=== PATIENT | female | born 1970 | race Caucasian/White ===

== ENCOUNTER 2018-06-30 18:48 | Emergency (ER) | payer BC, OTHER ==
[2018-06-30] MEDS ORDERED: ONDANSETRON HCL INJ/PF 4 MG/2 ML SDV IV ONE (19:24)
[2018-06-30] MEDS ORDERED: RINGERS SOLUTION,LACTATED 1,000 ML IV ONE (19:24)
--- NOTE | 2018-06-30 19:28 | ER Document Report ---
ED General - General Chief Complaint: Dizziness Stated Complaint: DIZZINESS Time Seen by Provider: 06/30/18 19:01 Primary Care Provider: DAYANNA RAMIREZ DO [Primary Care Provider] - Follow up in 3-5 days Notes: Patient is a 47-year old female with a past medical history of anxiety who presents complaining of an episode of lightheadedness and feel that she was about to pass out while at work today. Patient states that she was sitting at her desk, began to feel somewhat nauseated, sweaty and felt like her heart was going quickly. States that she drank a little bit of nick antonio which seemed to help mildly but do not fully resolve them. 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 She states that she is feeling somewhat better since getting in bed. She denies any associated chest pain, shortness of breath, vomiting, although reports that she is somewhat nauseated. Denies history of similar symptoms in the past. Denies any cardiac history. Has not seen her primary doctor regarding today's concerns. Denies focal weakness, numbness, vertigo or confusion. TRAVEL OUTSIDE OF THE [place] IN LAST 30 DAYS: No - Related Data Allergies/Adverse Reactions: Penicillins Allergy (Verified 03/16/15 13:23) Past Medical History - General Information source: Patient - Social History Smoking Status: Never Smoker Frequency of alcohol use: None Drug Abuse: None Family History: Reviewed & Not Pertinent Past Surgical History: Reports: Hx Hysterectomy Review of Systems - Review of Systems Notes: Constitutional: Negative for fever. HENT: Negative for sore throat. Eyes: Negative for visual changes. Cardiovascular: Negative for chest pain. Positive for lightheadedness Respiratory: Negative for shortness of breath. Gastrointestinal: Negative for abdominal pain, vomiting or diarrhea. Genitourinary: Negative for dysuria. Musculoskeletal: Negative for back pain. Skin: Negative for rash. Neurological: Negative for headaches, weakness or numbness. 10 point ROS negative except as marked above and in HPI. Physical Exam - Vital signs Vitals: Resp BP Pulse Ox 12 143/99 H 100 06/30/18 19:06 06/30/18 19:06 06/30/18 19:06 Interpretation: Hypertensive Notes: PHYSICAL EXAMINATION: GENERAL: Well-appearing, well-nourished and in no acute distress. HEAD: Atraumatic, normocephalic. EYES: Pupils equal round and reactive to light, extraocular movements intact, sclera anicteric, conjunctiva are normal. ENT: nares patent, oropharynx clear without exudates. Moist mucous membranes. NECK: Normal range of motion, supple without lymphadenopathy LUNGS: Breath sounds clear to auscultation bilaterally and equal. No wheezes rales or rhonchi. HEART: Regular rate and rhythm without murmurs ABDOMEN: Soft, nontender, normoactive bowel sounds. No guarding, no rebound. No masses appreciated. EXTREMITIES: Normal range of motion, no pitting or edema. No cyanosis. NEUROLOGICAL: No focal neurological deficits. Moves all extremities spontaneously and on command. PSYCH: Normal mood, normal affect. SKIN: Warm, Dry, normal turgor, no rashes or lesions noted. Course - Re-evaluation Re-evalutation: 06/30/18 19:26 Presentation of near syncope of unclear etiology. Patient normotensive, alert, without focal neurologic deficits at time of arrival. Denies pre-syncope was during exertion. No preceding symptoms of palpitations, chest pain, or shortness of breath. Patient asymptomatic at time of evaluation with the exception of some mild nausea EKG is without evidence of HCOM, right heart strain, ST changes to suggest ischemia, prolong QTc, delta wave, epsilon wave, or Brugada syndrome. Patient denies any family history of sudden cardiac , personal history of of structural heart disease. Patient denies any symptoms to suggest an acute PE, SD, TAD, SAH, seizure, or acute GI bleed as the etiology of their syncope today. On exam, no murmurs to suggest critical aortic stenosis as possible etiology. Labs unremarkable. Patient felt improved after receiving IV ondansetron and IV fluids based on overall clinical history, exam findings, vitals, and patients appearance, I feel it is safe for patient to be discharged home at this time with close outpatient follow-up and strict return precautions. Patient is in agreement with this plan, has verbalized indications for return to ED, and qu estions have been answered. - Vital Signs Vital signs: Temp Pulse Resp BP Pulse Ox 98.3 F 12 158/94 H 100 06/30/18 21:10 06/30/18 21:02 06/30/18 21:02 06/30/18 21:02 - Laboratory Result Diagrams: 06/30/18 19:10 06/30/18 19:10 Laboratory results interpreted by me: 06/30/18 06/30/18 19:10 19:10 Glucose 116 H Urine Ascorbic Acid 20 H - EKG Interpretation by Me Additional EKG results interpreted by me: 06/30/18 19:26 Sinus rhythm, rate 87. No ST elevations or depressions. QTC is 453. Discharge - Discharge Clinical Impression: Near syncope, Lightheadedness, Nausea Condition: Good Disposition: HOME, SELF-CARE Additional Instructions: You were seen today after an episode of almost passing out. Your EKG here is normal. At this time, we do not feel that your episode of lightheadedness was from any life-threatening cause. Please drink plenty of fluids over the next several days. Return to emergency department if you have any further episodes of getting lightheaded, headache, weakness, numbness, chest pain, or shortness of breath. Please follow up closely with your primary care physician. Referrals: DAYANNA RAMIREZ, [Primary Care Provider] - Follow up in 3-5 days
[2018-06-30 19:29] LABS: ABSOLUTE LYMPHOCYTES (AUTO) 1.6 10^3/uL (0.5-4.7); ABSOLUTE MONOCYTES (AUTO) 0.3 10^3/uL (0.1-1.4); ABSOLUTE NEUT (AUTO) 2.8 10^3/uL (1.7-8.2); BASOPHILS % (AUTO) 0.6 % (0-2); EOSINOPHILS % (AUTO) 0.3 % (0-6); HEMATOCRIT 37.3 % (36.0-47.0); HEMOGLOBIN 12.9 g/dL (12.0-15.5); LYMPHOCYTES % (AUTO) 33.5 % (13-45); MEAN CORPUSCULAR HEMOGLOBIN 31.3 pg (27.0-33.4); MEAN CORPUSCULAR HGB CONC 34.5 g/dL (32.0-36.0); MEAN CORPUSCULAR VOLUME 91 fl (80-97); PLATELET COUNT 257 10^3/uL (150-450); RED BLOOD COUNT 4.13 10^6/uL (3.72-5.28); RED CELL DISTRIBUTION WIDTH 12.7 % (11.5-14.0); SEGMENTED NEUTROPHILS % (AUTO) 59.6 % (42-78); TOTAL CELLS COUNTED % (AUTO) 100 %; WHITE BLOOD COUNT 4.7 10^3/uL (4.0-10.5)
[2018-06-30 19:44] LABS: APPEARANCE,URINE CLEAR; BILIRUBIN,URINE NEGATIVE (NEGATIVE); COLOR,URINE YELLOW; GLUCOSE, URINE NEGATIVE (NEGATIVE); KETONES,URINE NEGATIVE (NEGATIVE); LEUKOCYTE ESTERASE,URINE NEGATIVE (NEGATIVE); NITRITE,URINE NEGATIVE (NEGATIVE); PROTEIN,URINE NEGATIVE (NEGATIVE); URINE SPECIFIC GRAVITY 1.013; UROBILINOGEN,URINE NEGATIVE mg/dL (<2.0)
[2018-06-30 19:54] LABS: ALANINE AMINOTRANSFERASE 22 U/L (9-52); ALBUMIN 4.4 g/dL (3.5-5.0); ALKALINE PHOSPHATASE 51 U/L (38-126); ANION GAP 11 (5-19); ASPARTATE AMINO TRANSFERASE 20 U/L (14-36); BILIRUBIN,DIRECT 0.2 mg/dL (0.0-0.4); BILIRUBIN,TOTAL 0.7 mg/dL (0.2-1.3); BLOOD UREA NITROGEN 13 mg/dL (7-20); CALCIUM 10.1 mg/dL (8.4-10.2); CARBON DIOXIDE 25 mmol/L (22-30); CHLORIDE 102 mmol/L (98-107); GLUCOSE 116 mg/dL (75-110); POTASSIUM 3.8 mmol/L (3.6-5.0); TOTAL PROTEIN 7.1 g/dL (6.3-8.2)
[2018-06-30 20:03] LABS: CREATINE KINASE MB 0.38 ng/mL (<4.55)
[2018-06-30 20:06] LABS: TROPONIN I < 0.012 ng/mL
--- NOTE | 2018-06-30 20:07 | EKG REPORT ---
SEVERITY:- ABNORMAL ECG - SINUS RHYTHM RIGHT ATRIAL ABNORMALITY CONSIDER RIGHT VENTRICULAR HYPERTROPHY : Confirmed by: Fela Dowling MD 30-Jun-2018 20:07:06
[2018-06-30 21:24] VITALS: BP 158/94
== END 2018-06-30 21:25 | disposition home or self-care (01) ==
LOC: ER 18:48
DX: R55 Syncope and collapse (principal); R11.0 Nausea; Z88.0 Allergy status to penicillin
CPT/HCPCS: 93005; 99284; 36415; 82553; 85025; 80053; 81001; 84484; 93010; J2405; J7120

== ENCOUNTER 2018-12-12 07:34 | Emergency (ER) | payer OTHER, BC ==
[2018-12-12 07:58] LABS: ABSOLUTE BASOPHILS # (AUTO) 0.1 10^3/uL (0.0-0.2); ABSOLUTE LYMPHOCYTES (AUTO) 3.6 10^3/uL (0.5-4.7); ABSOLUTE MONOCYTES (AUTO) 0.7 10^3/uL (0.1-1.4); ABSOLUTE NEUT (AUTO) 3.5 10^3/uL (1.7-8.2); BASOPHILS % (AUTO) 0.9 % (0-2); EOSINOPHILS % (AUTO) 0.6 % (0-6); HEMOGLOBIN 13.7 g/dL (12.0-15.5); LYMPHOCYTES % (AUTO) 45.6 % (13-45); MEAN CORPUSCULAR HEMOGLOBIN 31.5 pg (27.0-33.4); MEAN CORPUSCULAR HGB CONC 33.3 g/dL (32.0-36.0); MEAN CORPUSCULAR VOLUME 95 fl (80-97); MONOCYTES % (AUTO) 8.7 % (3-13); PLATELET COUNT 409 10^3/uL (150-450); RED BLOOD COUNT 4.34 10^6/uL (3.72-5.28); RED CELL DISTRIBUTION WIDTH 13.8 % (11.5-14.0); SEGMENTED NEUTROPHILS % (AUTO) 44.2 % (42-78); TOTAL CELLS COUNTED % (AUTO) 100 %
[2018-12-12 08:15] LABS: ALKALINE PHOSPHATASE 48 U/L (38-126); ASPARTATE AMINO TRANSFERASE 26 U/L (14-36); BILIRUBIN,DIRECT 0.3 mg/dL (0.0-0.4); BILIRUBIN,TOTAL 0.9 mg/dL (0.2-1.3); BLOOD UREA NITROGEN 15 mg/dL (7-20); CALCIUM 10.3 mg/dL (8.4-10.2); GLUCOSE 112 mg/dL (75-110); POTASSIUM 4.3 mmol/L (3.6-5.0); TOTAL PROTEIN 7.7 g/dL (6.3-8.2)
[2018-12-12 08:20] LABS: CARBON DIOXIDE 13 mmol/L (22-30); CHLORIDE 107 mmol/L (98-107)
[2018-12-12] MEDS ORDERED: LEVETIRACETAM 1000 MG/NACL-ISO 1,000 MG/100 ML RTUPB IV ONE (08:20)
[2018-12-12 08:26] LABS: ALCOHOL < 10 mg/dL (NONE DETECTED); ANION GAP 25 (5-19)
[2018-12-12] MEDS ORDERED: NORMAL SALINE 1000 ML 1,000 ML IV ONE (08:38)
--- NOTE | 2018-12-12 08:56 | RADIOLOGY REPORT (SQ) ---
EXAM DESCRIPTION: CT HEAD WITHOUT COMPLETED DATE/TIME: 12/12/2018 8:11 am REASON FOR STUDY: sz COMPARISON: None. TECHNIQUE: Axial images acquired through the brain without intravenous contrast. Images reviewed wi th bone, brain and subdural windows. Additional sagittal and coronal reconstructions were generated. Images stored on PACS. All CT scanners at this facility use dose modulation, iterative reconstruction, and/or weight based d osing when appropriate to reduce radiation dose to as low as reasonably achievable (ALARA). [facility]: Dose Right [facility]: CareDose [facility]: Dose Right [facility]: Teradose 4D [facility]: [employer] RADIATION DOSE: CT Rad equipment meets quality standard of care and radiation dose reduction techniq ues were employed. CTDIvol: 53.2 mGy. DLP: 1070 mGy-cm. mGy. LIMITATIONS: Streak artifact from hair clips FINDINGS: VENTRICLES: Normal size and contour. CEREBRUM: No masses. No hemorrhage. No midline shift. No evidence for acute infarction. Normal gra y/white matter differentiation. No areas of low density in the white matter. CEREBELLUM: No masses. No hemorrhage. No alteration of density. No evidence for acute infarction. EXTRAAXIAL SPACES: No fluid collections. No masses. ORBITS AND GLOBE: No intra- or extraconal masses. Normal contour of globe without masses. CALVARIUM: No fracture. PARANASAL SINUSES: No fluid or mucosal thickening. SOFT TISSUES: No mass or hematoma. OTHER: No other significant finding. IMPRESSION: NORMAL BRAIN CT WITHOUT CONTRAST. EVIDENCE OF ACUTE STROKE: NO. COMMENT: Quality ID # [id number]: Final reports with documentation of one or more dose reduction techniques (e.g., Automated exposure control, adjustment of the mA and/or kV according to patient size, use of iterative reconstruction technique) TECHNICAL DOCUMENTATION: JOB ID: [id number] [employer]- All Rights Reserved Reading location - IP/workstation name: [facility]
--- NOTE | 2018-12-12 09:00 | RADIOLOGY REPORT (SQ) ---
EXAM DESCRIPTION: CT CERVICAL SPINE WITHOUT COMPLETED DATE/TIME: 12/12/2018 8:11 am REASON FOR STUDY: sz Neck pain COMPARISON: None. TECHNIQUE: Axial images acquired through the cervical spine without intravenous contrast. Images re viewed with lung, soft tissue and bone windows. Reconstructed coronal and sagittal MPR images review ed. Images stored on PACS. All CT scanners at this facility use dose modulation, iterative reconstruction, and/or weight based d osing when appropriate to reduce radiation dose to as low as reasonably achievable (ALARA). [facility]: Dose Right [facility]: CareDose [facility]: Dose Right [facility]: Teradose 4D [facility]: [employer] RADIATION DOSE: CT Rad equipment meets quality standard of care and radiation dose reduction techniq ues were employed. CTDIvol: 14.3 mGy. DLP: 291 mGy-cm. mGy. LIMITATIONS: None. FINDINGS: ALIGNMENT: Anatomic. MINERALIZATION: Normal. VERTEBRAL BODIES: No fractures or dislocation. DISCS: Post fusion with hardware at C5-6 and C6-7. Mild disc space loss of height at C4-5 with anter ior osteophyte formation. FACETS, LATERAL MASSES, POSTERIOR ELEMENTS: No fractures. No dislocation. No acute findings. HARDWARE: None in the spine. VISUALIZED RIBS: No fractures. LUNG APICES AND SOFT TISSUES: No significant or acute findings. OTHER: No other significant finding. IMPRESSION: NO ACUTE FINDINGS IN THE CERVICAL SPINE. TECHNICAL DOCUMENTATION: JOB ID: [id number] Quality ID # [id number]: Final reports with documentation of one or more dose reduction techniques (e.g., Au tomated exposure control, adjustment of the mA and/or kV according to patient size, use of iterative reconstruction technique) 2010 [email or web address]- All Rights Reserved Reading location - IP/workstation name: [email or web address]
--- NOTE | 2018-12-12 09:25 | ER Document Report ---
Entered by TAMMY ALVARENGA SCRIBE 12/12/18 0755 Acting as scribe for:MIKEY ERICKSON MD ED Seizure - General Chief Complaint: Seizure Stated Complaint: SEIZURE Primary Care Provider: DAYANNA BIRCH DO [Primary Care Provider] - Follow up as needed Mode of Arrival: Stretcher Information source: Patient Notes: Patient is a 48-year-old female who presents to the emergency department today with complaints of seizure-like activity. Patient works as an ER patient care secretary here at [employer] and ER staff states that the patient was sitting in her chair and fell onto the floor, flat on her face, and began having what appeared to be a tonic- clonic seizure for approximately 60 seconds. Patient states she does not remember anything that happened. Patient states prior to this occurring she noticed that her "eyes were fluttering", stating that she was unable to focus on anything. Patient states she did eat breakfast this morning. Patient states that she does not have a history of seizure disorder. Patient did not have any urinary incontinence, but she states she did urinate prior to this episode. Patient had an episode in June 2018 where she felt like she was going to pass out but she states that the symptoms were not the same as today. Patient states at that time she was having a heart racing sensation and she felt short of breath. Patient never passed out during that visit. - Related Data Allergies/Adverse Reactions: Penicillins Allergy (Verified 12/12/18 08:16) Past Medical History - General Information source: Patient, [facility] Records - Social History Smoking Status: Former Smoker Cigarette use (# per day): No Chew tobacco use (# tins/day): No Smoking Education Provided: No Frequency of alcohol use: None Drug Abuse: None Lives with: Spouse/Significant other Family History: Reviewed & Not Pertinent Patient has suicidal ideation: No Patient has homicidal ideation: No Psychiatric Medical History: Reports: Hx Anxiety Past Surgical History: Reports: Hx Hysterectomy - Partial, Hx Orthopedic Surgery - Spinal fusion C5-6 6-7 Review of Systems - Review of Systems Notes: obtained from patient and ER staff Constitutional: No symptoms reported EENT: See HPI, Other - eyes "fluttering" Cardiovascular: No symptoms reported Respiratory: No symptoms reported Gastrointestinal: No symptoms reported Genitourinary: No symptoms reported Female Genitourinary: No symptoms reported Musculoskeletal: No symptoms reported Skin: No symptoms reported Hematologic/Lymphatic: No symptoms reported Neurological/Psychological: See HPI, Seizure -: Yes All other systems reviewed and negative Physical Exam - Vital signs Vitals: BP Pulse Ox 153/93 H 100 12/12/18 07:39 12/12/18 07:39 - Notes Notes: Physical Exam: General: Alert, appears well. Did not urinate on herself but does state she went to the bathroom shortly before this episode. HEENT: Normocephalic. Atraumatic. PERRL. Extraocular movements intact. Oropharynx clear. Tongue not chewed or injured. There are abrasions over the anterior neck. Teeth #8 and #9 are chipped. Neck: Supple. C-collar removed. Non-tender. Respiratory: No respiratory distress. Clear and equal breath sounds bilaterally. Cardiovascular: Regular rate and rhythm. Abdominal: Normal Inspection. Non-tender. No distension. Normal Bowel Sounds. Back: No gross abnormalities. Extremities: Moves all four extremities. Upper extremities: Normal inspection. Normal ROM. Lower extremities: Normal inspection. No edema. Normal ROM. Neurological: Normal cognition. AAOx4. Normal speech. Psychological: Normal affect. Normal Mood. Skin: Warm. Dry. Normal color. Course - Re-evaluation Re-evalutation: 12/12/18 12:04 Reviewing patient records, I find that she has been prescribed alprazolam 0.5 mg 3 times daily since the middle of August of this year. She had been prescribed dosing like that previously and had drug-free intervals of several months at a time. At this time Dr. Dick Garcia is prescribing her zolpidem and her alprazolam. The patient's urine drug screen was negative for benzodiazepines. When asking about this the patient initially tells me that she takes the alprazolam only twice daily, and also stated that she was out and needed to get a refill and that is why she had not had any in the last few days. When I pointed out that that should have left her with an additional 30 tablets, then she stated she just stopped taking them 2 days ago because she felt better. She also reports that she is seeing a primary care provider at [facility] named Dr. Birch who had recommended she see a neurologist for her sleeping problems for which she takes the zolpidem. At this time the exact cause of her seizure is quite confusing. There have been no cardiac arrhythmias, and her postictal state with suggest this was not cardiac syncope. She is possibly taking benzodiazepines on a daily basis and now has stopped abruptly and this may have triggered the seizure. She will be advised to continue taking the alprazolam as it was prescribed, and follow-up with either Dr. Shaffer or Dr. Birch tomorrow for further evaluation and referral to a neurologist for EEG testing. I also reviewed the lab work with the patient and pointed out that her serum creatinine was 0.93 on 06/30/2018, and it is 1.28 today. There is a significant change in her urine creatinine with out a change in her BUN or urine specific gravity those 2 days. - Vital Signs Vital signs: Temp Pulse Resp BP Pulse Ox 19 132/89 H 100 12/12/18 10:09 12/12/18 10:09 12/12/18 10:09 - Laboratory Result Diagrams: 12/12/18 07:50 12/12/18 07:50 Laboratory results interpreted by me: 12/12/18 12/12/18 07:50 07:50 Lymph % (Auto) 45.6 H Sodium 145.4 H Carbon Dioxide 13 L Anion Gap 25 H Creatinine 1.28 H Est GFR ( Amer) 54 L Est GFR (MDRD) Non-Af 45 L Glucose 112 H Calcium 10.3 H - EKG Interpretation by Me EKG shows normal: Sinus rhythm, [place], Intervals, QRS Complexes, ST-T Waves Rate: Normal - 82 Rhythm: NSR P Waves: LAE When compared to previous EKG there are: No significant change Discharge - Discharge Clinical Impression: Syncope and collapse, Generalized seizure, Renal insufficiency Broken tooth injury Qualifiers: Encounter type: initial encounter Fracture type: closed Qualified Code(s): S02.5XXA - Fracture of tooth (traumatic), initial encounter for closed fracture Condition: Stable Disposition: HOME, SELF-CARE Additional Instructions: Seizure You have had a seizure. Seizure disorders (epilepsy) of one sort or another affect about one out of 50 people. The seizure occurs because of abnormal electrical activity in the brain. Seizures may be due to drugs and alcohol, strokes, brain injury, or infection. In the most common form of epilepsy, no cause can be found. You will require further evaluation to determine the cause of your seizure, and to determine whether anti-seizure medication is required. This follow-up testing is important, so please call us if you encounter problems with scheduling of tests or appointments. YOU SHOULD NOT DRIVE until released to do so by your physician. The law requires that seizures be reported to the transport truck driver's license bureau--a seizure while driving could be catastrophic. Call the doctor if seizures recur, or if you develop new symptoms such as fever, severe headache, stiff neck, confusion or increasing sleepiness, weakness or numbness, or visual problems. Continue your regular medications as they are prescribed. Drink plenty of fluids today and this evening. Follow-up with Dr. Birch or Dr. Garcia tomorrow to review your seizure, and lab work from today. Follow-up with your dentist to have your teeth repaired. RETURN TO THE EMERGENCY ROOM IF ANY NEW OR WORSENING SYMPTOMS. Forms: Return to Work Referrals: DAYANNA BIRCH DO [Primary Care Provider] - Follow up tomorrow DICK GARCIA MD [ACTIVE STAFF] - Follow up tomorrow Scribe Attestation: 12/12/18 10:48 I personally performed the services described in the documentation, reviewed and edited the documentation which was dictated to the scribe in my presence, and it accurately records my words and actions. I personally performed the services described in the documentation, reviewed and edited the documentation which was dictated to the scribe in my presence, and it accurately records my words and actions.
[2018-12-12 10:21] LABS: APPEARANCE,URINE SLIGHTLY-CLOUDY; BILIRUBIN,URINE NEGATIVE (NEGATIVE); GLUCOSE, URINE NEGATIVE (NEGATIVE); KETONES,URINE NEGATIVE (NEGATIVE); LEUKOCYTE ESTERASE,URINE NEGATIVE (NEGATIVE); NITRITE,URINE NEGATIVE (NEGATIVE); PROTEIN,URINE NEGATIVE (NEGATIVE); URINE SPECIFIC GRAVITY 1.011; UROBILINOGEN,URINE NEGATIVE mg/dL (<2.0)
--- NOTE | 2018-12-12 10:25 | EKG REPORT ---
SEVERITY:- ABNORMAL ECG - SINUS RHYTHM LEFT ATRIAL ABNORMALITY : Confirmed by: Yaneth Del Castillo 12-Dec-2018 10:24:49
[2018-12-12 10:32] LABS: COLOR,URINE YELLOW
[2018-12-12 10:36] LABS: URINE AMPHETAMINES SCREEN NEGATIVE; URINE BARBITURATES SCREEN NEGATIVE; URINE BENZODIAZEPINES SCREEN NEGATIVE; URINE COCAINE SCREEN NEGATIVE; URINE MARIJUANA (THC) SCREEN NEGATIVE; URINE METHADONE SCREEN NEGATIVE; URINE PHENCYCLIDINE SCREEN NEGATIVE
[2018-12-12 12:19] VITALS: BP 131/73
== END 2018-12-12 12:23 | disposition home or self-care (01) ==
LOC: ER 07:34
DX: R55 Syncope and collapse (principal); N28.9 Disorder of kidney and ureter, unspecified; S02.5XXA Fracture of tooth (traumatic), initial encounter for closed fracture; S10.91XA Abrasion of unspecified part of neck, initial encounter; W07.XXXA Fall from chair, initial encounter; R56.9 Unspecified convulsions; Z90.710 Acquired absence of both cervix and uterus; Z98.1 Arthrodesis status
CPT/HCPCS: 93005; 99284; 96360; 36415; 80307 ×2; 83735; 85025; 80053; 81001; 70450; 72125; 93010; J7030

== ENCOUNTER 2019-07-10 09:35 | Emergency (ER) | payer BC, OTHER ==
--- NOTE | 2019-07-10 10:09 | ER Document Report ---
ED General - General Chief Complaint: High Blood Pressure Stated Complaint: HIGH BLOOD PRESSURE Time Seen by Provider: 07/10/19 09:46 Primary Care Provider: DAYANNA RAMIREZ DO [Primary Care Provider] - Follow up tomorrow Mode of Arrival: Ambulatory Information source: Patient Notes: Patient presents with right flank pain for the past 4 to 5 days that has been intermittent. Patient states that when she was having the pain it causes her to become nauseous and her blood pressure to be elevated. Patient's blood pressure initially was 163/105. She denies any history of hypertension. Patient does report urinary frequency. No fever. Patient denies any vomiting. TRAVEL OUTSIDE OF THE [place] IN LAST 30 DAYS: No - HPI Onset: Other - 5 days Onset/Duration: Waxing and waning Quality of pain: Sharp Severity: Moderate Pain Level: Denies Associated symptoms: Nausea. denies: Chest pain, Chills, Nonproductive cough, Productive cough, Fever, Vomiting Exacerbated by: Denies Relieved by: Denies Similar symptoms previously: No Recently seen / treated by doctor: No - Related Data Allergies/Adverse Reactions: Penicillins Allergy (Verified 12/12/18 08:16) Past Medical History - General Information source: Patient - Social History Smoking Status: Never Smoker Frequency of alcohol use: None Drug Abuse: None Occupation: [employer] Family History: Reviewed & Not Pertinent Renal/ Medical History: Denies: Hx Peritoneal Dialysis Psychiatric Medical History: Reports: Hx Anxiety Past Surgical History: Reports: Hx Hysterectomy - Partial, Hx Orthopedic Surgery - Spinal fusion C5-6 6-7 Review of Systems - Review of Systems Constitutional: No symptoms reported. denies: Fever EENT: No symptoms reported Cardiovascular: No symptoms reported. denies: Chest pain Respiratory: No symptoms reported. denies: Cough Gastrointestinal: Nausea. denies: Abdominal pain, Diarrhea, Vomiting Genitourinary: Frequency, Flank pain. denies: Dysuria Female Genitourinary: No symptoms reported Musculoskeletal: Back pain Skin: No symptoms reported Hematologic/Lymphatic: No symptoms reported Neurological/Psychological: No symptoms reported Physical Exam - Vital signs Vitals: Resp 16 07/10/19 09:46 - General General appearance: Appears well, Alert In distress: None - HEENT Head: Normocephalic, Atraumatic Eyes: Normal Conjunctiva: Normal Nasal: Normal Mouth/Lips: Normal Mucous membranes: Normal Neck: Normal, Supple - Respiratory Respiratory status: No respiratory distress Chest status: Nontender Breath sounds: Normal. No: Rales, Rhonchi, Stridor, Wheezing Chest palpation: Normal - Cardiovascular Rhythm: Regular Heart sounds: S1 appreciated, S2 appreciated - Abdominal Inspection: Normal Distension: No distension Bowel sounds: Normal Tenderness: Nontender Organomegaly: No organomegaly - Back Back: Normal. No: CVA tenderness - Extremities General upper extremity: Normal inspection, Normal strength General lower extremity: Normal inspection, Normal strength - Neurological Neuro grossly intact: Yes Cognition: Normal [place] Coma Scale Eye Opening: Spontaneous [place] Coma Scale Verbal: Oriented [place] Coma Scale Motor: Obeys Commands [place] Coma Scale Total: 15 - Psychological Associated symptoms: Normal affect, Normal mood - Skin Skin Temperature: Warm Skin Moisture: Dry Skin Color: Normal Course - Re-evaluation Re-evalutation: 07/10/19 11:42 On repeat exam, patient has tenderness to lower lumbar area and lumbar paraspinal area. Patient states that she did have some pain that radiated to the right lower extremity yesterday although denies this at this time. Patient without any paresthesia. Patient without any weakness to the extremities. The patient presents with low back pain without signs of spinal cord compression, cauda equina syndrome, infection, aneurysm, or other serious etiology. The patient is neurologically intact. Given the extremely risk of these diagnoses further testing and evaluation for these possibilities does not appear to be indicated at this time. Patient has been instructed to return if the symptoms worsen or change in any way. - Vital Signs Vital signs: Temp Pulse Resp BP Pulse Ox 98.1 F 15 127/93 H 98 07/10/19 11:58 07/10/19 11:58 07/10/19 11:58 07/10/19 11:58 - Laboratory Result Diagrams: 07/10/19 09:56 07/10/19 09:56 Laboratory results interpreted by me: 07/10/19 09:56 Sodium 135.1 L Glucose 117 H Labs- Entire Visit 07/10/19 07/10/19 07/10/19 09:56 09:56 09:56 WBC 4.5 RBC 4.42 Hgb 14.3 Hct 40.9 MCV 93 MCH 32.4 MCHC 35.0 RDW 13.4 Plt Count 275 Lymph % (Auto) 23.0 [place] % (Auto) 5.3 Eos % (Auto) 0.7 Baso % (Auto) 1.0 Absolute Neuts (auto) 3.2 Absolute Lymphs (auto) 1.0 Absolute Monos (auto) 0.2 Absolute Eos (auto) 0.0 Absolute Basos (auto) 0.0 Seg Neutrophils % 70.0 Sodium 135.1 L Potassium 3.6 Chloride 102 Carbon Dioxide 26 Anion Gap 7 BUN 11 Creatinine 0.89 Est GFR ( Amer) > 60 Est GFR (MDRD) Non-Af > 60 Glucose 117 H Calcium 9.2 Total Bilirubin 0.7 Direct Bilirubin 0.0 Neonat Total Bilirubin Not Reportable Neonat Direct Bilirubin Not Reportable Neonat Indirect Bili Not Reportable AST 22 ALT 12 Alkaline Phosphatase 53 Total Protein 7.1 Albumin 4.4 Urine Color STRAW Urine Appearance CLEAR Urine pH 6.0 Ur Specific [place] 1.006 Urine Protein NEGATIVE Urine Glucose (UA) NEGATIVE Urine Ketones NEGATIVE Urine Blood NEGATIVE Urine Nitrite NEGATIVE Urine Bilirubin NEGATIVE Urine Urobilinogen NEGATIVE Ur Leukocyte Esterase NEGATIVE Urine WBC (Auto) 1 Urine RBC (Auto) 1 Urine Bacteria (Auto) 1+ Squamous Epi Cells Auto 2 Urine Mucus (Auto) RARE Urine Ascorbic Acid NEGATIVE - Diagnostic Test Radiology reviewed: Reports reviewed Discharge - Discharge Clinical Impression: Right flank pain Low back pain Qualifiers: Chronicity: acute Back pain laterality: right Sciatica presence: without sciatica Qualified Code(s): M54.5 - Low back pain Condition: Stable Disposition: HOME, SELF-CARE Instructions: Flank Pain ([facility]), Low Back Pain ([facility]), Oral Narcotic Medication ([facility]), Sciatica ([facility]) Additional Instructions: Return immediately for any new or worsening symptoms Followup with your primary care provider, call tomorrow to make a followup appointment Prescriptions: Lidocaine [Lidoderm 5% (700 mg) Transdermal Patch] 1 patch TP DAILY PRN #10 adh..patch PRN Reason: Hydrocodone/Acetaminophen [[place] 5-325 mg Tablet] 1 tab PO Q6 PRN #15 tablet PRN Reason: Ondansetron [Zofran Odt 4 mg Tablet] 1 tab PO Q6H #15 tab.rapdis Forms: Return to Work Referrals: DAYANNA RAMIREZ DO [Primary Care Provider] - Follow up tomorrow
[2019-07-10 10:18] LABS: ABSOLUTE MONOCYTES (AUTO) 0.2 10^3/uL (0.1-1.4); ABSOLUTE NEUT (AUTO) 3.2 10^3/uL (1.7-8.2); EOSINOPHILS % (AUTO) 0.7 % (0-6); HEMATOCRIT 40.9 % (36.0-47.0); HEMOGLOBIN 14.3 g/dL (12.0-15.5); MEAN CORPUSCULAR HEMOGLOBIN 32.4 pg (27.0-33.4); MEAN CORPUSCULAR VOLUME 93 fl (80-97); MONOCYTES % (AUTO) 5.3 % (3-13); PLATELET COUNT 275 10^3/uL (150-450); RED BLOOD COUNT 4.42 10^6/uL (3.72-5.28); RED CELL DISTRIBUTION WIDTH 13.4 % (11.5-14.0); TOTAL CELLS COUNTED % (AUTO) 100 %; WHITE BLOOD COUNT 4.5 10^3/uL (4.0-10.5)
[2019-07-10 10:22] LABS: APPEARANCE,URINE CLEAR; BILIRUBIN,URINE NEGATIVE (NEGATIVE); COLOR,URINE STRAW; GLUCOSE, URINE NEGATIVE (NEGATIVE); KETONES,URINE NEGATIVE (NEGATIVE); LEUKOCYTE ESTERASE,URINE NEGATIVE (NEGATIVE); NITRITE,URINE NEGATIVE (NEGATIVE); PROTEIN,URINE NEGATIVE (NEGATIVE); URINE SPECIFIC GRAVITY 1.006; UROBILINOGEN,URINE NEGATIVE mg/dL (<2.0)
[2019-07-10 10:30] LABS: ALBUMIN 4.4 g/dL (3.5-5.0); ALKALINE PHOSPHATASE 53 U/L (38-126); ANION GAP 7 (5-19); ASPARTATE AMINO TRANSFERASE 22 U/L (14-36); BILIRUBIN,TOTAL 0.7 mg/dL (0.2-1.3); BLOOD UREA NITROGEN 11 mg/dL (7-20); CALCIUM 9.2 mg/dL (8.4-10.2); CARBON DIOXIDE 26 mmol/L (22-30); CHLORIDE 102 mmol/L (98-107); GLUCOSE 117 mg/dL (75-110); POTASSIUM 3.6 mmol/L (3.6-5.0); TOTAL PROTEIN 7.1 g/dL (6.3-8.2)
[2019-07-10] MEDS ORDERED: ONDANSETRON HCL INJ/PF 4 MG/2 ML SDV IV ONE (11:00)
[2019-07-10] MEDS ORDERED: KETOROLAC TROMETHAMINE INJ/PF 30 MG/1 ML SDV IV ONE (11:00)
--- NOTE | 2019-07-10 11:12 | RADIOLOGY REPORT (SQ) ---
EXAM DESCRIPTION: CT ABD/PELVIS NO ORAL OR IV IMAGES COMPLETED DATE/TIME: 07/10/2019 10:29 am REASON FOR STUDY: R flank pain COMPARISON: None. TECHNIQUE: CT scan of the abdomen and pelvis performed without intravenous or oral contrast. Images reviewed with lung, soft tissue, and bone windows. Reconstructed coronal and sagittal MPR images revi ewed. All images stored on PACS. All CT scanners at this facility use dose modulation, iterative reconstruction, and/or weight based d osing when appropriate to reduce radiation dose to as low as reasonably achievable (ALARA). [facility]: Dose Right [facility]: CareDose [facility]: Dose Right [facility]: Teradose 4D [facility]: TellFi RADIATION DOSE: CT Rad equipment meets quality standard of care and radiation dose reduction techniq ues were employed. CTDIvol: 4.9 mGy. DLP: 252 mGy-cm.mGy. LIMITATIONS: None. FINDINGS: LOWER CHEST: No significant findings. No nodules or infiltrates. NON-CONTRASTED LIVER, SPLEEN, ADRENALS: Evaluation limited by lack of IV contrast. No identified sign ificant masses. PANCREAS: No masses. No peripancreatic inflammatory changes. GALLBLADDER: No identified stones by CT criteria. No inflammatory changes to suggest cholecystitis. RIGHT KIDNEY AND URETER: No suspicious masses. Assessment limited by lack of IV contrast. No signif icant calcifications. No hydronephrosis or hydroureter. LEFT KIDNEY AND URETER: No suspicious masses. Assessment limited by lack of IV contrast. Tiny left midpole intrarenal nonobstructive 2 mm calculus coronal image 43. No hydronephrosis or hydroureter. AORTA AND RETROPERITONEUM: No aneurysm. No retroperitoneal masses or adenopathy. BOWEL AND PERITONEAL CAVITY: No obvious masses or inflammatory changes. No free fluid. APPENDIX: Normal. PELVIS, BLADDER, AND ABDOMINAL WALL:No abnormal masses. No free fluid. Bladder normal. Post hysterec vinicio BONES: No significant findings. OTHER: No other significant finding. IMPRESSION: No CT evidence of obstructive right-sided urinary stones, or right hydronephrosis/ hydro ureter. Tiny 2 mm left midpole intrarenal nonobstructive calculus. No left-sided hydronephrosis or hydrouret er COMMENT: Quality ID # [id number]: Final reports with documentation of one or more dose reduction techniques (e.g., Automated exposure control, adjustment of the mA and/or kV according to patient size, use of iterative reconstruction technique) TECHNICAL DOCUMENTATION: JOB ID: [id number] 2010 [employer]- All Rights Reserved Reading location - IP/workstation name: [email or web address]
[2019-07-10] MEDS ORDERED: LIDOCAINE 5% (700 MG) TRANSDERMAL ADH..PATCH TP ONE (11:46)
[2019-07-10 12:06] VITALS: BP 127/93
== END 2019-07-10 12:06 | disposition home or self-care (01) ==
LOC: ER 09:35
DX: M54.5 Low back pain (principal); R10.9 Unspecified abdominal pain; I10 Essential (primary) hypertension; R11.0 Nausea; R35.0 Frequency of micturition; Z88.0 Allergy status to penicillin
CPT/HCPCS: 99284; 96374; 96375; 36415; 87086; 85025; 80053; 81001; 74176; J1885; J2405

== ENCOUNTER → 2019-10-17 | Outpatient (CLI) | payer BC, OTHER ==
--- NOTE | 2019-10-18 11:21 | RADIOLOGY REPORT (SQ) ---
EXAM DESCRIPTION: MRI CERVICAL SPINE WITHOUT IMAGES COMPLETED DATE/TIME: 10/17/2019 7:23 pm REASON FOR STUDY: M54.2 CERVICALGIA M54.2 CERVICALGIA COMPARISON: CT dated 12/12/2018. TECHNIQUE: Sagittal and Axial imaging includes T1, T2, STIR and gradient echo sequences. LIMITATIONS: None. FINDINGS: ALIGNMENT: Normal. VERTEBRAE: Intact. BONE MARROW: Normal. No marrow replacement or reactive changes. DISCS: Normal. No significant abnormal signal or loss of height. HARDWARE: Anterior hardware at C5-C6 and C6-C7. CORD AND BASE OF BRAIN: Normal in size and signal intensity. SOFT TISSUES: No soft tissue masses. C1-C2: No significant spinal stenosis. C2-C3: No significant spinal stenosis or exit foraminal stenosis. C3-C4: Mild uncovertebral spurring with mild left exit foraminal stenosis. No spinal stenosis. C4-C5: Mild uncovertebral spurring with mild exit foraminal stenosis. No significant spinal stenosis . C5-C6: No significant spinal stenosis or exit foraminal stenosis. C6-C7: No significant spinal stenosis or exit foraminal stenosis. C7-T1: No significant spinal stenosis or exit foraminal stenosis. UPPER THORACIC: Incompletely imaged. No significant spinal stenosis or exit foraminal stenosis. OTHER: No other significant finding. IMPRESSION: MILD UNCOVERTEBRAL SPURRING WITH MILD EXIT FORAMINAL STENOSIS AT C3-C4 AND C4-C5. ANTER IOR FUSION WITH HARDWARE AT C5-C6 AND C6-C7. NO SPINAL STENOSIS OR IMPINGEMENT OF THE CORD. TECHNICAL DOCUMENTATION: JOB ID: [id number] 2010 [employer]- All Rights Reserved Reading location - IP/workstation name: [email or web address]
== END ==
LOC: RAD 16:38
PROVIDERS: ATTEND Physician Assistant
DX: M54.2 Cervicalgia (principal)
CPT/HCPCS: 72141

== ENCOUNTER 2020-02-26 04:53 | Emergency (ER) | payer BC, OTHER ==
[2020-02-26] MEDS ORDERED: NORMAL SALINE 1000 ML 1,000 ML IV ONE (08:21)
[2020-02-26] MEDS ORDERED: ONDANSETRON HCL INJ/PF 4 MG/2 ML SDV IV ONE (08:21)
[2020-02-26] MEDS ORDERED: MORPHINE SULFATE 10 MG/ML INJ IV ONE ×2 (08:21→11:25)
--- NOTE | 2020-02-26 08:23 | ER Document Report ---
ED GI/ - General Chief Complaint: Abdominal Pain Stated Complaint: RIGHT LOWER ABDOMINAL PAIN Time Seen by Provider: 02/26/20 08:14 Notes: Patient is a 49-year-old female who comes to the emergency department for chief complaint of severe worsening right lower abdominal pain and nausea. Symptoms started almost 3 days ago, she was seen by primary care, symptoms initially seemed like they were also in her back, she was prescribed prednisone and ibuprofen for the pain. She states pain is worsened, she has not anything to eat for almost 48 hours now. She reports vague dysuria. She denies vomiting, fever/chills, abnormal bowel movements, has not had a bowel movement in 2 to 3 days. She has had a partial hysterectomy and cervical spine surgery, she denies daily prescribed medications, she denies surgeries otherwise. She does not have a history of kidney stones. TRAVEL OUTSIDE OF THE [place] IN LAST 30 DAYS: No - Related Data Allergies/Adverse Reactions: Penicillins Allergy (Verified 02/26/20 08:18) Home Medications: tylenol, ibuprofen, prednisone. Past Medical History - General Information source: Patient - Social History Smoking Status: Never Smoker Frequency of alcohol use: None Drug Abuse: None Lives with: Family Family History: Reviewed & Not Pertinent Renal/ Medical History: Denies: Hx Peritoneal Dialysis Psychiatric Medical History: Reports: Hx Anxiety Past Surgical History: Reports: Hx Hysterectomy - Partial, Hx Orthopedic Surgery - Spinal fusion C5-6 6-7 - Immunizations Immunizations up to date: Yes Hx Diphtheria, Pertussis, Tetanus Vaccination: Yes Review of Systems - Review of Systems Constitutional: No symptoms reported EENT: No symptoms reported Cardiovascular: No symptoms reported Respiratory: No symptoms reported Gastrointestinal: See HPI Genitourinary: No symptoms reported Female Genitourinary: No symptoms reported Musculoskeletal: No symptoms reported Skin: No symptoms reported Hematologic/Lymphatic: No symptoms reported Neurological/Psychological: No symptoms reported Physical Exam - Vital signs Vitals: Temp Pulse Resp BP Pulse Ox 97.6 F 97 16 142/95 H 100 02/26/20 04:54 02/26/20 04:54 02/26/20 04:54 02/26/20 04:54 02/26/20 04:54 - Notes Notes: GENERAL: Tired and somewhat unwell appearing, appears uncomfortable HEAD: Normocephalic, atraumatic. EYES: Pupils equal, round, and reactive to light. Extraocular movements intact. ENT: Oral mucosa moist, tongue midline. Oropharynx unremarkable. Airway patent. NECK: Full range of motion. Supple. Trachea midline. No lymphadenopathy. LUNGS: Clear to auscultation bilaterally, no wheezes, rales, or rhonchi. No respiratory distress. Non-tender chest wall. HEART: Regular rate and rhythm. No murmur ABDOMEN: Generally tender, no overt distention, tenderness is much more noticeable in the right mid to lower abdomen including over McBurney's point although there is no specific severe guarding. No rebound tenderness. Bowel sounds quiet. EXTREMITIES: Moves all 4 extremities spontaneously. No edema, normal radial and dorsalis pedis pulses bilaterally. No cyanosis. BACK: no cervical, thoracic, lumbar midline tenderness. No saddle anesthesia, normal distal neurovascular exam. Moves all extremities in full range of motion. NEUROLOGICAL: Alert and oriented x3. Normal speech. Cranial nerves II through XII grossly intact. Strength 5/5 in all extremities. PSYCH: Normal affect, normal mood. SKIN: Warm, dry, normal turgor. No rashes or lesions noted. Course - Re-evaluation Re-evalutation: Patient appears uncomfortable, tired, generally unwell. She has some generalized abdominal tenderness but this is more noticeable in the right mid to lower abdomen including McBurney's area. Symptoms have been worsening for several days, difficult to rule out appendicitis based on the exam and history however. Patient has not eaten anything in 2 days. CBC and chemistry are unremarkable however. Urinalysis borderline without any urinary symptoms, cultured. Discussed with patient and decision was made to perform CT of the abdomen pelvis with oral and IV contrast. CT shows large amount of retained stool and essentially fecal impaction but no obstruction and no acute surgical findings. Discussed with patient. Decision was made proceed with enema, this was performed with a very large results, patient improved in appearance on reevaluation. Discussed bowel therapy, patient states she has had Bentyl in the past without any relief and is requesting Toradol, this was provided. Discussed follow-up and return precautions. Patient states understanding and agreement. - Vital Signs Vital signs: Temp Pulse Resp BP Pulse Ox 98.1 F 80 17 136/78 H 99 02/26/20 14:20 02/26/20 14:20 02/26/20 14:20 02/26/20 14:20 02/26/20 14:20 - Laboratory Results Result Diagrams: 02/26/20 08:17 02/26/20 08:17 Laboratory Results Interpreted: 02/26/20 08:17 Anion Gap 3 L AST 45 H ALT 88 H Critical Laboratory Results Reviewed: No Critical Results - Radiology Results Critical Radiology Results Reviewed: No Critical Results Discharge - Discharge Clinical Impression: Abdominal pain Qualifiers: Abdominal location: generalized Qualified Code(s): R10.84 - Generalized abdominal pain Condition: Stable Disposition: HOME, SELF-CARE Additional Instructions: Your work-up showed fecal impaction and large backup of hard stool. No surgical or concerning findings noted otherwise. Drink plenty of fluids, I recommend the stool softener as prescribed for the next several days, increase fiber in your diet. Follow-up with primary care for additional management. Return if you worsen including severe worsening pain, vomiting, fever, or any other concerning or worsening symptoms. Prescriptions: Ketorolac Tromethamine [Toradol 10 mg Tablet] 10 mg PO Q8HP PRN #24 tablet PRN Reason: Polyethylene Glycol 3350 [Miralax Powder 17 gm/Packet] 1 packet PO DAILY PRN #1 pkg PRN Reason:
[2020-02-26 08:32] LABS: ABSOLUTE EOSINOPHILS # (AUTO) 0.1 10^3/uL (0.0-0.6); ABSOLUTE LYMPHOCYTES (AUTO) 1.8 10^3/uL (0.5-4.7); ABSOLUTE MONOCYTES (AUTO) 0.5 10^3/uL (0.1-1.4); ABSOLUTE NEUT (AUTO) 5.2 10^3/uL (1.7-8.2); BASOPHILS % (AUTO) 0.6 % (0-2); EOSINOPHILS % (AUTO) 1.3 % (0-6); HEMATOCRIT 38.1 % (36.0-47.0); HEMOGLOBIN 13.3 g/dL (12.0-15.5); LYMPHOCYTES % (AUTO) 23.2 % (13-45); MEAN CORPUSCULAR HEMOGLOBIN 31.9 pg (27.0-33.4); MEAN CORPUSCULAR HGB CONC 34.9 g/dL (32.0-36.0); MEAN CORPUSCULAR VOLUME 91 fl (80-97); MONOCYTES % (AUTO) 6.4 % (3-13); PLATELET COUNT 244 10^3/uL (150-450); RED BLOOD COUNT 4.18 10^6/uL (3.72-5.28); RED CELL DISTRIBUTION WIDTH 13.6 % (11.5-14.0); SEGMENTED NEUTROPHILS % (AUTO) 68.5 % (42-78); TOTAL CELLS COUNTED % (AUTO) 100 %; WHITE BLOOD COUNT 7.6 10^3/uL (4.0-10.5)
[2020-02-26 08:50] LABS: ALBUMIN 3.9 g/dL (3.5-5.0); ALKALINE PHOSPHATASE 64 U/L (38-126); ASPARTATE AMINO TRANSFERASE 45 U/L (14-36); BILIRUBIN,DIRECT 0.2 mg/dL (0.0-0.4); BILIRUBIN,TOTAL 0.4 mg/dL (0.2-1.3); BLOOD UREA NITROGEN 18 mg/dL (7-20); CALCIUM 9.2 mg/dL (8.4-10.2); CARBON DIOXIDE 30 mmol/L (22-30); CHLORIDE 105 mmol/L (98-107); GLUCOSE 82 mg/dL (75-110); POTASSIUM 4.1 mmol/L (3.6-5.0); TOTAL PROTEIN 6.8 g/dL (6.3-8.2)
[2020-02-26 08:53] LABS: ANION GAP 3 (5-19)
[2020-02-26 09:09] LABS: APPEARANCE,URINE CLOUDY; BILIRUBIN,URINE NEGATIVE (NEGATIVE); CALCIUM OXALATE CRYSTALS,URINE TOO NUMEROUS TO CNT /HPF; COLOR,URINE YELLOW; GLUCOSE, URINE NEGATIVE (NEGATIVE); KETONES,URINE NEGATIVE (NEGATIVE); LEUKOCYTE ESTERASE,URINE NEGATIVE (NEGATIVE); NITRITE,URINE NEGATIVE (NEGATIVE); PROTEIN,URINE NEGATIVE (NEGATIVE); URINE SPECIFIC GRAVITY 1.023; UROBILINOGEN,URINE NEGATIVE mg/dL (<2.0)
--- NOTE | 2020-02-26 12:33 | RADIOLOGY REPORT (SQ) ---
EXAM DESCRIPTION: CT ABD/PELVIS WITH IV ORAL IMAGES COMPLETED DATE/TIME: 02/26/2020 9:10 am REASON FOR STUDY: RLQ pain COMPARISON: None. TECHNIQUE: CT scan of the abdomen and pelvis performed using helical scanning technique with dynamic intravenous contrast injection. Oral contrast was also given. Images reviewed with lung, soft tissu e, and bone windows. Reconstructed coronal and sagittal MPR images reviewed. Delayed images for evalu ation of the urinary system also acquired. All images stored on PACS. All CT scanners at this facility use dose modulation, iterative reconstruction, and/or weight based d osing when appropriate to reduce radiation dose to as low as reasonably achievable (ALARA). [facility]: Dose Right [facility]: CareDose [facility]: Dose Right [facility]: Teradose 4D [facility]: [employer] CONTRAST TYPE AND DOSE: contrast/concentration: Isovue 350.00 mmol/ml; Total Contrast Delivered: 72. 0 ml; Total Saline Delivered: 39.0 ml RENAL FUNCTION: None required. The patient is less than 50 years old. RADIATION DOSE: CT Rad equipment meets quality standard of care and radiation dose reduction techniq ues were employed. CTDIvol: 4.2 - 4.2 mGy. DLP: 435 mGy-cm.. LIMITATIONS: None. FINDINGS: LOWER CHEST: Bilateral breast implants are partially visualized. Minimal basilar atelecta sis. LIVER: Tiny hypodense lesion anteriorly is too small to adequately characterize, but likely represent s a benign cyst. No suspicious liver lesion. SPLEEN: Normal size. Probable tiny splenic cyst or hemangioma superiorly. PANCREAS: No masses. No significant calcifications. No adjacent inflammation or peripancreatic fluid collections. Pancreatic duct not dilated. GALLBLADDER: No identified stones by CT criteria. No inflammatory changes to suggest cholecystitis. ADRENAL GLANDS: No significant masses or asymmetry. RIGHT KIDNEY AND URETER: No solid masses. No significant calcifications. No hydronephrosis or hyd roureter. LEFT KIDNEY AND URETER: No solid masses. No significant calcifications. No hydronephrosis or hydr oureter. AORTA AND VESSELS: Mild atherosclerotic plaque without aneurysm. RETROPERITONEUM: No retroperitoneal adenopathy, hemorrhage or masses. BOWEL AND PERITONEAL CAVITY: Large amount of stool in the distal colon and rectum. No bowel obstruct ion. No significant bowel wall thickening or adjacent inflammatory change. APPENDIX: Normal. PELVIS: Status posthysterectomy. No adnexal mass. Urinary bladder is unremarkable. Trace free pelv ic fluid is nonspecific. ABDOMINAL WALL: No masses. No hernias. BONES: No significant or acute findings. OTHER: No other significant finding. IMPRESSION: 1. Trace free fluid in the pelvis is nonspecific but may be within physiologic limits. 2. Large amount of stool in the distal colon and rectum. No small bowel obstruction. 3. Normal appendix. TECHNICAL DOCUMENTATION: JOB ID: [id number] Quality ID # [id number]: Final reports with documentation of one or more dose reduction techniques (e.g., Au tomated exposure control, adjustment of the mA and/or kV according to patient size, use of iterative reconstruction technique) 2010 [employer] - [employer]- All Rights Reserved Reading location - IP/workstation name: [email or web address]
[2020-02-26] MEDS ORDERED: MINERAL OIL 30 ML UDCUP PR ONE (12:42)
[2020-02-26] MEDS ORDERED: KETOROLAC TROMETHAMINE INJ/PF 30 MG/1 ML SDV IV ONE (14:04)
[2020-02-26 14:20] VITALS: BP 136/78
== END 2020-02-26 14:19 | disposition home or self-care (01) ==
LOC: ER 04:53
DX: R10.84 Generalized abdominal pain (principal); R10.31 Right lower quadrant pain; R30.0 Dysuria; Z90.710 Acquired absence of both cervix and uterus; Z88.0 Allergy status to penicillin; Z79.899 Other long term (current) drug therapy
CPT/HCPCS: 96376; 99285; 96361; 96374; 96375; 36415; 87086; 83690; 85025; 80053; 81001; 74177; J1885; J3490; J2270; J2405; J7030

== ENCOUNTER 2020-03-20 12:11 | Emergency (ER) | payer BC, OTHER ==
--- NOTE | 2020-03-20 12:34 | ER Document Report ---
ED Medical Screen (RME) - General Chief Complaint: Dizziness Stated Complaint: DIZZY/ARM PAIN Time Seen by Provider: 03/20/20 12:24 TRAVEL OUTSIDE OF THE [place] IN LAST 30 DAYS: No - HPI Notes: 03/20/20 12:32 49-year-old female with history of depression and insomnia presents to the emergency room today for evaluation of facial numbness with arm numbness that radiates down her arms, dizziness, vertigo, palpitations that started 2 days ago. Reports that these episodes comes in waves and they are progressive with time. Has not tried any [id number] medications. Reports she was seen by her primary care for this initially, they did test her for Covid which was negative, they were working her up for vertigo. She reports since her symptoms have become progressively worse that she wanted to get checked out emergency room. Denies any visual changes, chest pain, shortness of breath, vomiting, abdominal pain. She does endorse a headache as well as nausea. Denies any cardiac history, denies any familial cardiac history. Has not tried any medications, no travel. I have greeted and performed a rapid initial assessment of this patient. A comprehensive ED assessment and evaluation of the patient, analysis of test results and completion of the medical decision making process will be conducted by additional ED providers. PHYSICAL EXAMINATION: GENERAL: Well-appearing, well-nourished and in no acute distress. HEAD: Atraumatic, normocephalic. EYES: Pupils equal round extraocular movements intact, conjunctiva are normal. NECK: Normal range of motion CV: s1, s2 regular LUNGS: No respiratory distress Musculoskeletal: Normal range of motion NEUROLOGICAL: Normal speech, normal gait. SKIN: Warm, Dry, normal turgor, no rashes or lesions noted. The patient was evaluated during a global COVID-19 pandemic and that diagnosis was suspected/considered upon their initial presentation. Their evaluation, treatment and testing was consistent with current guidelines for patients who present with complaints or symptoms and may be related to COVID-19. - Related Data Allergies/Adverse Reactions: Penicillins Allergy (Verified 02/26/20 08:18) Past Medical History Renal/ Medical History: Denies: Hx Peritoneal Dialysis Psychiatric Medical History: Reports: Hx Anxiety Past Surgical History: Reports: Hx Hysterectomy - Partial, Hx Orthopedic Surgery - Spinal fusion C5-6 6-7 - Immunizations Immunizations up to date: Yes Hx Diphtheria, Pertussis, Tetanus Vaccination: Yes Physical Exam - Vital signs Vitals: Temp Pulse Resp BP Pulse Ox 97.9 F 87 18 155/87 H 100 03/20/20 12:18 03/20/20 12:18 03/20/20 12:18 03/20/20 12:18 03/20/20 12:18 Course - Vital Signs Vital signs: Temp Pulse Resp BP Pulse Ox 97.9 F 87 18 155/87 H 100 03/20/20 12:18 03/20/20 12:18 03/20/20 12:18 03/20/20 12:18 03/20/20 12:18
--- NOTE | 2020-03-20 13:11 | RADIOLOGY REPORT (SQ) ---
EXAM DESCRIPTION: CT HEAD WITHOUT IMAGES COMPLETED DATE/TIME: 03/20/2020 1:00 pm REASON FOR STUDY: dizziness, facial arm numbness x 2d COMPARISON: 12/12/2018 TECHNIQUE: Axial images acquired through the brain without intravenous contrast. Images reviewed wi th bone, brain and subdural windows. Additional sagittal and coronal reconstructions were generated. Images stored on PACS. All CT scanners at this facility use dose modulation, iterative reconstruction, and/or weight based d osing when appropriate to reduce radiation dose to as low as reasonably achievable (ALARA). [facility]: Dose Right [facility]: CareDose [facility]: Dose Right [facility]: Teradose 4D [facility]: Smart [employer] RADIATION DOSE: CT Rad equipment meets quality standard of care and radiation dose reduction techniq ues were employed. CTDIvol: 53.2 mGy. DLP: 1070 mGy-cm. mGy. LIMITATIONS: None. FINDINGS: VENTRICLES: Normal size and contour. CEREBRUM: No masses. No hemorrhage. No midline shift. No evidence for acute infarction. Normal gra y/white matter differentiation. No areas of low density in the white matter. CEREBELLUM: No masses. No hemorrhage. No alteration of density. No evidence for acute infarction. EXTRAAXIAL SPACES: No fluid collections. No masses. ORBITS AND GLOBE: No intra- or extraconal masses. Normal contour of globe without masses. CALVARIUM: No fracture. PARANASAL SINUSES: No fluid or mucosal thickening. SOFT TISSUES: No mass or hematoma. OTHER: No other significant finding. IMPRESSION: NORMAL BRAIN CT WITHOUT CONTRAST. EVIDENCE OF ACUTE STROKE: NO. COMMENT: Quality ID # [id number]: Final reports with documentation of one or more dose reduction techniques (e.g., Automated exposure control, adjustment of the mA and/or kV according to patient size, use of iterative reconstruction technique) TECHNICAL DOCUMENTATION: JOB ID: [id number] 2010 [employer]- All Rights Reserved Reading location - IP/workstation name: [email or web address]
--- NOTE | 2020-03-20 13:12 | RADIOLOGY REPORT (SQ) ---
EXAM DESCRIPTION: CHEST SINGLE VIEW IMAGES COMPLETED DATE/TIME: 03/20/2020 1:04 pm REASON FOR STUDY: Palpitations COMPARISON: None. EXAM PARAMETERS: NUMBER OF VIEWS: One view. TECHNIQUE: Single frontal radiographic view of the chest acquired. RADIATION DOSE: NA LIMITATIONS: None. FINDINGS: LUNGS AND PLEURA: No opacities, masses or pneumothorax. No pleural effusion. MEDIASTINUM AND HILAR STRUCTURES: No masses. Contour normal. HEART AND VASCULAR STRUCTURES: Heart normal in size. Normal vasculature. BONES: No acute findings. HARDWARE: None in the chest. OTHER: No other significant finding. IMPRESSION: NO ACUTE RADIOGRAPHIC FINDING IN THE CHEST. TECHNICAL DOCUMENTATION: JOB ID: [id number] 2010 [employer]- All Rights Reserved Reading location - IP/workstation name: [email or web address]
[2020-03-20 14:47] LABS: ABSOLUTE LYMPHOCYTES (AUTO) 0.9 10^3/uL (0.5-4.7); ABSOLUTE MONOCYTES (AUTO) 0.4 10^3/uL (0.1-1.4); BASOPHILS % (AUTO) 0.6 % (0-2); EOSINOPHILS % (AUTO) 0.6 % (0-6); HEMATOCRIT 38.4 % (36.0-47.0); HEMOGLOBIN 13.3 g/dL (12.0-15.5); LYMPHOCYTES % (AUTO) 16.5 % (13-45); MEAN CORPUSCULAR HEMOGLOBIN 31.2 pg (27.0-33.4); MEAN CORPUSCULAR HGB CONC 34.5 g/dL (32.0-36.0); MEAN CORPUSCULAR VOLUME 91 fl (80-97); MONOCYTES % (AUTO) 7.4 % (3-13); PLATELET COUNT 299 10^3/uL (150-450); RED BLOOD COUNT 4.24 10^6/uL (3.72-5.28); RED CELL DISTRIBUTION WIDTH 14.1 % (11.5-14.0); SEGMENTED NEUTROPHILS % (AUTO) 74.9 % (42-78); TOTAL CELLS COUNTED % (AUTO) 100 %; WHITE BLOOD COUNT 5.3 10^3/uL (4.0-10.5)
--- NOTE | 2020-03-20 15:04 | ER Document Report ---
ED General - General Chief Complaint: Dizziness Stated Complaint: DIZZY/ARM PAIN Time Seen by Provider: 03/20/20 12:24 TRAVEL OUTSIDE OF THE [place] IN LAST 30 DAYS: No - HPI Notes: Patient is a 49-year-old female who presents emergency department for evaluation. She was seen here in the emergency department recently for abdominal pain. She was given an enema. She states that since being here in the emergency department she has been getting a numbness and tingling sensation that worsens across her face. It then washes down her entire body. It does not seem to be distributed in 1 specific area. It never really goes away, the sensation in her face, but she is able to walk. She states that occasionally she feels "off balance" but is able to write herself with just slowing down. She denies any visual changes. No hearing loss or tinnitus. No recent URI. She denies any chest pain or shortness of breath. - Related Data Allergies/Adverse Reactions: Penicillins Allergy (Verified 02/26/20 08:18) Home Medications: [place] Past Medical History - General Information source: Patient - Social History Smoking Status: Never Smoker Family History: Reviewed & Not Pertinent Renal/ Medical History: Denies: Hx Peritoneal Dialysis Psychiatric Medical History: Reports: Hx Anxiety Past Surgical History: Reports: Hx Hysterectomy - Partial, Hx Orthopedic Surgery - Spinal fusion C5-6 6-7 - Immunizations Immunizations up to date: Yes Hx Diphtheria, Pertussis, Tetanus Vaccination: Yes Review of Systems - Review of Systems Constitutional: No symptoms reported EENT: No symptoms reported Cardiovascular: No symptoms reported Respiratory: No symptoms reported Gastrointestinal: See HPI Genitourinary: No symptoms reported Musculoskeletal: No symptoms reported Skin: No symptoms reported Neurological/Psychological: See HPI Physical Exam - Vital signs Vitals: Pulse Resp BP Pulse Ox 78 21 H 155/106 H 100 03/20/20 12:12 03/20/20 12:12 03/20/20 12:12 03/20/20 12:12 - Notes Notes: Vital signs reviewed, please refer to chart. Head is normocephalic, atraumatic. Pupils equal round, reactive to light. Neck is supple without meningismus. Heart is regular rate and rhythm. Lungs are clear to auscultation bilaterally. Abdomen is soft, nontender, normoactive bowel sounds throughout. Extremities without cyanosis, clubbing. Posterior calves are nontender. Peripheral pulses are equal. Skin is warm and dry. Patient is awake, alert, oriented x3. Cranial nerves II - XII are grossly intact without focal neurological deficits. Strength is plus 5 out of 5 bilateral upper and lower extremities. Sensation is intact. Reflexes symmetrical. Intact [id number], rapid alternating movements, [id number]. Course - Re-evaluation Re-evalutation: 03/20/20 15:01 Patient presents emergency department for evaluation. By description, her symptoms seem most consistent with anxiety. The patient admits to having history of anxiety. She is on Prozac 20 mg, has been on it for decades. She is currently stable in regards to this. She saw her primary care provider earlier today who started her on some meclizine. She has not yet taken that. That may be in fact slightly helpful for anxiety. I am still awaiting electrolytes, which could be the only other etiology of her symptoms I believe at this time. She is currently stable, we will continue to monitor. 03/20/20 15:43 Labs, imaging, EKG unremarkable. Patient is reassured. I will have her follow- up with primary care, return to the ED with worsening. - Vital Signs Vital signs: Temp Pulse Resp BP Pulse Ox 97.9 F 87 18 155/87 H 100 03/20/20 12:18 03/20/20 12:18 03/20/20 12:18 03/20/20 12:18 03/20/20 12:18 - Laboratory Results Result Diagrams: 03/20/20 14:30 03/20/20 14:30 Laboratory Results Interpreted: 03/20/20 14:30 RDW 14.1 H Critical Laboratory Results Reviewed: No Critical Results - Radiology Results Radiology Results Interpreted: 03/20/20 15:[address] 03/20/20 12:30 IMPRESSION: NORMAL BRAIN CT WITHOUT CONTRAST. EVIDENCE OF ACUTE STROKE: NO. Chest X-Ray 03/20/20 12:31 IMPRESSION: NO ACUTE RADIOGRAPHIC FINDING IN THE CHEST. Critical Radiology Results Reviewed: No Critical Results - EKG Interpretation by Me Additional EKG results interpreted by me: 03/20/20 15:03 Sinus mechanism with a rate of 78 bpm. Normal axis and intervals. P mitrale noted. Nonspecific ST and T wave changes, but no acute ST elevation or depression concerning for infarction or ischemia. No change when compared to prior study. Discharge - Discharge Clinical Impression: Numbness and tingling, Anxiety Condition: Stable Disposition: HOME, SELF-CARE Instructions: Numbness or Paresthesia ([facility]), Anxiety ([facility]) Additional Instructions: Laboratory investigations, imaging, EKG were unremarkable today. Your findings are most consistent with anxiety. Please follow-up with your primary care provider. If your symptoms worsen, or you develop new or concerning symptoms of any sort, please return immediately to the emergency department for evaluation.
[2020-03-20 15:10] LABS: ALBUMIN 4.4 g/dL (3.5-5.0); ALKALINE PHOSPHATASE 71 U/L (38-126); ANION GAP 10 (5-19); ASPARTATE AMINO TRANSFERASE 23 U/L (14-36); BILIRUBIN,DIRECT 0.2 mg/dL (0.0-0.4); BILIRUBIN,TOTAL 0.6 mg/dL (0.2-1.3); BLOOD UREA NITROGEN 13 mg/dL (7-20); CALCIUM 9.8 mg/dL (8.4-10.2); CARBON DIOXIDE 25 mmol/L (22-30); CHLORIDE 105 mmol/L (98-107); GLUCOSE 92 mg/dL (75-110); POTASSIUM 3.9 mmol/L (3.6-5.0); TOTAL PROTEIN 7.1 g/dL (6.3-8.2)
[2020-03-20 16:00] VITALS: BP 159/96
--- NOTE | 2020-03-20 18:48 | EKG REPORT ---
SEVERITY:- ABNORMAL ECG - SINUS RHYTHM LEFT ATRIAL ABNORMALITY : Confirmed by: Zackery Aden MD 20-Mar-2020 18:47:35
== END 2020-03-20 16:00 | disposition home or self-care (01) ==
LOC: ER 12:11
DX: F41.9 Anxiety disorder, unspecified (principal); R20.0 Anesthesia of skin; R20.2 Paresthesia of skin; R42 Dizziness and giddiness; Z79.899 Other long term (current) drug therapy; Z88.0 Allergy status to penicillin
CPT/HCPCS: 36415; 70450; 71045; 80053; 84484; 85025; 93005; 93010; 99285